=== PATIENT | male | born 1980 | race Caucasian/White ===

== ENCOUNTER 2022-07-29 11:31 | Inpatient (IN) | payer OTHER ==
[2022-07-29] VITALS (13 sets, daily range): BP systolic 100–121; BP diastolic 57–89
[~2022-07-29] VITALS: Ht 170.2 cm; Wt 97.1 kg
[2022-07-29] MEDS ORDERED: FENTANYL CITRATE/PF 50MCG/ML 2ML VIAL IV ONE ×3 (12:00→15:15)
[2022-07-29] MEDS ORDERED: CALCIUM CHLORIDE 1,000 MG in DEXT 5% WATER 90 ML IV ONE (13:00)
[2022-07-29 13:01] LABS: BASOPHILS % 1.1 % (0.0-2.0); EOSINOPHILS % 4.2 % (0.0-5.0); LYMPHOCYTES % 25.3 % (20.0-50.0); MEAN CORPUSCULAR HEMOGLOBIN 25.8 pg (28.0-32.0); MEAN CORPUSCULAR VOLUME 84.5 fL (80.0-94.0); MEAN PLATELET VOLUME 7.4 fl (7.4-10.4); MONOCYTES % 9.6 % (2.0-8.0); NEUTROPHILS % 59.8 % (40.0-76.0); PLATELET 328 x1000/uL (130-400); RED BLOOD CELL COUNT 2.43 mill/uL (4.7-6.1)
[2022-07-29 13:02] LABS: HEMOGLOBIN. 6.3 g/dL (14.0-18.0)
[2022-07-29 13:03] LABS: HEMATOCRIT. 20.6 % (42.0-52.0)
[2022-07-29 13:04] LABS: CHLORIDE 115 mEq/L (98-107)
[2022-07-29 13:07] LABS: INR 1.2; PROTHROMBIN TIME 12.6 sec (9.6-11.0)
[2022-07-29] MEDS ORDERED: ONDANSETRON HCL 4MG/2ML INJ IV NR (15:45)
[2022-07-29 17:06] LABS: HEMATOCRIT. 27.8 % (42.0-52.0); HEMOGLOBIN. 9.1 g/dL (14.0-18.0); MEAN CORPUSCULAR HEMOGLOBIN 27.7 pg (28.0-32.0); MEAN CORPUSCULAR VOLUME 84.3 fL (80.0-94.0); MEAN PLATELET VOLUME 7.2 fl (7.4-10.4); PLATELET 183 x1000/uL (130-400); RED BLOOD CELL COUNT 3.29 mill/uL (4.7-6.1); RED CELL DISTRIBUTION WIDTH 16.6 % (11.6-14.6)
[2022-07-29 17:08] LABS: INR 1.1; PROTHROMBIN TIME 12.2 sec (9.6-11.0)
[2022-07-29] MEDS ORDERED: ACETAMINOPHEN 325MG TABLET PO PRN (20:30)
[2022-07-29] MEDS ORDERED: POTASSIUM CHLORIDE 20MEQ TABLET SR PO NR (20:30)
[2022-07-29] MEDS ORDERED: SENNOSIDES 8.6MG TABLET PO PRN (20:30)
[2022-07-29] MEDS ORDERED: ZOLPIDEM TARTRATE 5MG TABLET PO PRN (20:30)
[2022-07-29] MEDS ORDERED: MAGNESIUM HYDROXIDE 400MG/5ML 30ML UDC PO PRN (20:30)
[2022-07-29] MEDS ORDERED: MAGNESIUM/ALUMINUM HYDROXIDE/SIMETHICONE 30ML UDC PO PRN (20:30)
[2022-07-29] MEDS ORDERED: NALOXONE HCL 0.4MG/ML VIAL IV PRN (20:45)
[2022-07-29] MEDS: HYDROMORPHONE HCL/PF 2MG/ML CPJ IV PRN ×2 (21:20→23:32)
[2022-07-29] MEDS: DIPHENHYDRAMINE 50MG/ML VIAL IV PRN (21:20)
[2022-07-29] MEDS: SODIUM CHLORIDE 0.9% 1,000 ML IV SCH (21:21)
[2022-07-29] MEDS: OXYCODONE HCL 20MG TABLET SR 12HR PO SCH (23:10)
[2022-07-29] MEDS: LORAZEPAM 0.5MG TABLET PO PRN (23:11)
[2022-07-30] VITALS (27 sets, daily range): BP systolic 92–136; BP diastolic 47–85
[2022-07-30 00:53] LABS: PLATELET ESTIMATE NORMAL
[2022-07-30] MEDS: HYDROMORPHONE HCL/PF 2MG/ML CPJ IV PRN ×10 (01:40→22:50)
[2022-07-30 06:39] LABS: BASOPHILS % 0.9 % (0.0-2.0); EOSINOPHILS % 2.1 % (0.0-5.0); HEMATOCRIT. 25.7 % (42.0-52.0); HEMOGLOBIN. 8.5 g/dL (14.0-18.0); LYMPHOCYTES % 7.2 % (20.0-50.0); MEAN CORPUSCULAR HEMOGLOBIN 27.7 pg (28.0-32.0); MEAN CORPUSCULAR VOLUME 83.8 fL (80.0-94.0); MEAN PLATELET VOLUME 7.7 fl (7.4-10.4); MONOCYTES % 9.5 % (2.0-8.0); NEUTROPHILS % 80.3 % (40.0-76.0); PLATELET 181 x1000/uL (130-400); RED BLOOD CELL COUNT 3.07 mill/uL (4.7-6.1); RED CELL DISTRIBUTION WIDTH 16.6 % (11.6-14.6)
[2022-07-30] MEDS: OXYCODONE HCL 20MG TABLET SR 12HR PO SCH ×2 (09:00→22:02)
[2022-07-30] MEDS: SODIUM CHLORIDE 0.9% 1,000 ML IV SCH ×2 (09:30→22:50)
[2022-07-30 10:25] LABS: CHLORIDE 113 mEq/L (98-107); PHOSPHORUS 3.4 mg/dL (2.5-4.9)
[2022-07-30] MEDS ORDERED: OXYCODONE HCL 20MG TABLET SR 12HR PO NR (10:30)
[2022-07-31] VITALS (14 sets, daily range): BP systolic 101–128; BP diastolic 29–64
[2022-07-31] MEDS: HYDROMORPHONE HCL/PF 2MG/ML CPJ IV PRN ×10 (01:01→22:41)
[2022-07-31] MEDS: LORAZEPAM 0.5MG TABLET PO PRN (05:42)
[2022-07-31 07:15] LABS: HEMATOCRIT. 22.5 % (42.0-52.0); HEMOGLOBIN. 7.5 g/dL (14.0-18.0); MEAN CORPUSCULAR HEMOGLOBIN 27.9 pg (28.0-32.0); MEAN CORPUSCULAR VOLUME 83.3 fL (80.0-94.0); MEAN PLATELET VOLUME 7.4 fl (7.4-10.4); PLATELET 148 x1000/uL (130-400); RED CELL DISTRIBUTION WIDTH 16.6 % (11.6-14.6)
[2022-07-31 07:42] LABS: CHLORIDE 111 mEq/L (98-107)
[2022-07-31] MEDS: OXYCODONE HCL 20MG TABLET SR 12HR PO SCH ×2 (09:47→20:39)
[2022-07-31] MEDS: SODIUM CHLORIDE 0.9% 1,000 ML IV SCH (13:02)
[2022-08-01] VITALS (25 sets, daily range): BP systolic 102–135; BP diastolic 44–79
[2022-08-01] MEDS: HYDROMORPHONE HCL/PF 2MG/ML CPJ IV PRN ×9 (00:51→22:50)
[2022-08-01] MEDS: ONDANSETRON HCL 4MG/2ML INJ IV PRN ×2 (02:21→10:33)
[2022-08-01] MEDS: SODIUM CHLORIDE 0.9% 1,000 ML IV SCH ×2 (02:22→15:10)
[2022-08-01 05:53] LABS: MEAN CORPUSCULAR HEMOGLOBIN 27.4 pg (28.0-32.0); MEAN CORPUSCULAR VOLUME 83.9 fL (80.0-94.0); PLATELET 138 x1000/uL (130-400); RED BLOOD CELL COUNT 2.48 mill/uL (4.7-6.1)
[2022-08-01 06:56] LABS: NUCLEATED RED BLOOD CELLS 1 /100 WBC
[2022-08-01 06:59] LABS: HEMOGLOBIN 6.8 g/dL (14.0-18.0)
[2022-08-01 07:00] LABS: HEMATOCRIT 20.8 % (42.0-52.0)
[2022-08-01 07:13] LABS: PLATELET ESTIMATE NORMAL
[2022-08-01] MEDS: OXYCODONE HCL 20MG TABLET SR 12HR PO SCH ×2 (10:33→21:28)
[2022-08-01] MEDS: ACETAMINOPHEN 325MG TABLET PO PRN (11:50)
[2022-08-01] MEDS: PANTOPRAZOLE 40MG DR TABLET PO SCH (21:28)
[2022-08-02] VITALS (18 sets, daily range): BP systolic 100–131; BP diastolic 47–75
[2022-08-02] MEDS: HYDROMORPHONE HCL/PF 2MG/ML CPJ IV PRN ×10 (00:45→22:23)
[2022-08-02] MEDS: SODIUM CHLORIDE 0.9% 1,000 ML IV SCH ×2 (04:43→17:50)
[2022-08-02 06:34] LABS: MEAN CORPUSCULAR VOLUME 83.3 fL (80.0-94.0); PLATELET 156 x1000/uL (130-400); RED BLOOD CELL COUNT 3.12 mill/uL (4.7-6.1); RED CELL DISTRIBUTION WIDTH 16.5 % (11.6-14.6)
[2022-08-02 07:17] LABS: HEMOGLOBIN 8.7 g/dL (14.0-18.0)
[2022-08-02] MEDS: PANTOPRAZOLE 40MG DR TABLET PO SCH ×2 (08:59→22:22)
[2022-08-02] MEDS: OXYCODONE HCL 20MG TABLET SR 12HR PO SCH ×2 (11:58→21:42)
[2022-08-02] MEDS: ACETAMINOPHEN 325MG TABLET PO PRN (14:58)
[2022-08-02 21:39] LABS: HEMOGLOBIN. 8.3 g/dL (14.0-18.0); MEAN CORPUSCULAR HEMOGLOBIN 27.7 pg (28.0-32.0); MEAN CORPUSCULAR VOLUME 83.8 fL (80.0-94.0); MEAN PLATELET VOLUME 7.6 fl (7.4-10.4); PLATELET 145 x1000/uL (130-400); RED BLOOD CELL COUNT 2.98 mill/uL (4.7-6.1); RED CELL DISTRIBUTION WIDTH 16.2 % (11.6-14.6)
[2022-08-02 23:54] LABS: PLATELET ESTIMATE NORMAL
[2022-08-03] VITALS (16 sets, daily range): BP systolic 96–125; BP diastolic 48–62
[2022-08-03] MEDS: HYDROMORPHONE HCL/PF 2MG/ML CPJ IV PRN ×11 (00:34→23:27)
[2022-08-03] MEDS: SODIUM CHLORIDE 0.9% 1,000 ML IV SCH ×2 (02:31→14:43)
[2022-08-03 05:42] LABS: HEMATOCRIT. 24.7 % (42.0-52.0); HEMOGLOBIN. 8.3 g/dL (14.0-18.0); MEAN CORPUSCULAR HEMOGLOBIN 28.1 pg (28.0-32.0); MEAN CORPUSCULAR VOLUME 83.7 fL (80.0-94.0); MEAN PLATELET VOLUME 7.8 fl (7.4-10.4); PLATELET 148 x1000/uL (130-400); RED BLOOD CELL COUNT 2.95 mill/uL (4.7-6.1); RED CELL DISTRIBUTION WIDTH 16.3 % (11.6-14.6)
[2022-08-03] MEDS: PANTOPRAZOLE 40MG DR TABLET PO SCH ×2 (06:55→20:54)
[2022-08-03] MEDS: OXYCODONE HCL 20MG TABLET SR 12HR PO SCH ×2 (09:22→21:58)
[2022-08-03 19:49] LABS: PLATELET ESTIMATE NORMAL
[2022-08-03] MEDS ORDERED: NALOXONE HCL 0.4MG/ML VIAL IV PRN (22:30)
[2022-08-04] VITALS (15 sets, daily range): BP systolic 98–130; BP diastolic 47–73
[2022-08-04] MEDS: HYDROMORPHONE HCL/PF 2MG/ML CPJ IV PRN ×9 (02:24→22:06)
[2022-08-04] MEDS: SODIUM CHLORIDE 0.9% 1,000 ML IV SCH ×2 (02:24→20:28)
[2022-08-04 06:40] LABS: MEAN CORPUSCULAR HEMOGLOBIN 27.8 pg (28.0-32.0); MEAN CORPUSCULAR VOLUME 83.6 fL (80.0-94.0); PLATELET 132 x1000/uL (130-400); RED BLOOD CELL COUNT 2.52 mill/uL (4.7-6.1); RED CELL DISTRIBUTION WIDTH 15.8 % (11.6-14.6)
[2022-08-04] MEDS: PANTOPRAZOLE 40MG DR TABLET PO SCH ×2 (08:49→20:28)
[2022-08-04] MEDS: OXYCODONE HCL 20MG TABLET SR 12HR PO SCH ×2 (10:22→20:28)
[2022-08-04] MEDS ORDERED: CEFAZOLIN 500 MG in DEXTROSE 5% WATER 50 ML IV SCH (15:45)
[2022-08-04] MEDS: CEFAZOLIN 1000MG PREMIX 50 ML IV SCH (20:26)
[2022-08-04 21:25] LABS: HEMOGLOBIN 7.5 g/dL (14.0-18.0)
[2022-08-05] VITALS (12 sets, daily range): BP systolic 104–125; BP diastolic 58–78
[2022-08-05] MEDS: HYDROMORPHONE HCL/PF 2MG/ML CPJ IV PRN ×11 (00:11→22:53)
[2022-08-05] MEDS: CEFAZOLIN 1000MG PREMIX 50 ML IV SCH ×3 (00:11→20:34)
[2022-08-05] MEDS: PANTOPRAZOLE 40MG DR TABLET PO SCH ×2 (06:15→20:39)
[2022-08-05 08:52] LABS: HEMATOCRIT. 22.4 % (42.0-52.0); HEMOGLOBIN. 7.5 g/dL (14.0-18.0); MEAN CORPUSCULAR HEMOGLOBIN 27.8 pg (28.0-32.0); PLATELET 149 x1000/uL (130-400); RED CELL DISTRIBUTION WIDTH 15.9 % (11.6-14.6)
[2022-08-05] MEDS: OXYCODONE HCL 20MG TABLET SR 12HR PO SCH ×2 (09:47→20:39)
[2022-08-05] MEDS: SODIUM CHLORIDE 0.9% 1,000 ML IV SCH (12:53)
[2022-08-05 19:52] LABS: PLATELET ESTIMATE NORMAL
[2022-08-06] VITALS (12 sets, daily range): BP systolic 103–133; BP diastolic 52–72
[2022-08-06] MEDS: HYDROMORPHONE HCL/PF 2MG/ML CPJ IV PRN ×9 (00:51→22:14)
[2022-08-06] MEDS: SODIUM CHLORIDE 0.9% 1,000 ML IV SCH ×2 (01:12→16:51)
[2022-08-06] MEDS: CEFAZOLIN 1000MG PREMIX 50 ML IV SCH ×3 (01:12→16:52)
[2022-08-06] MEDS: PANTOPRAZOLE 40MG DR TABLET PO SCH ×2 (06:14→22:14)
[2022-08-06] MEDS: OXYCODONE HCL 20MG TABLET SR 12HR PO SCH ×2 (10:04→21:00)
[2022-08-06 16:09] LABS: HEMATOCRIT 22.8 % (42.0-52.0); HEMOGLOBIN 7.6 g/dL (14.0-18.0); MEAN CORPUSCULAR HEMOGLOBIN 27.5 pg (28.0-32.0); MEAN CORPUSCULAR VOLUME 83.3 fL (80.0-94.0); PLATELET 162 x1000/uL (130-400); RED BLOOD CELL COUNT 2.74 mill/uL (4.7-6.1); RED CELL DISTRIBUTION WIDTH 16.1 % (11.6-14.6)
[2022-08-07] VITALS (13 sets, daily range): BP systolic 98–123; BP diastolic 49–71
[2022-08-07] MEDS: HYDROMORPHONE HCL/PF 2MG/ML CPJ IV PRN ×8 (00:48→22:04)
[2022-08-07] MEDS: DIPHENHYDRAMINE 50MG/ML VIAL IV PRN (00:48)
[2022-08-07] MEDS: CEFAZOLIN 1000MG PREMIX 50 ML IV SCH ×3 (01:00→17:12)
[2022-08-07] MEDS: SODIUM CHLORIDE 0.9% 1,000 ML IV SCH ×2 (04:30→17:13)
[2022-08-07] MEDS: PANTOPRAZOLE 40MG DR TABLET PO SCH ×2 (09:23→22:16)
[2022-08-07 09:28] LABS: HEMATOCRIT 24.9 % (42.0-52.0); HEMOGLOBIN 8.2 g/dL (14.0-18.0); MEAN CORPUSCULAR HEMOGLOBIN 27.8 pg (28.0-32.0); PLATELET 167 x1000/uL (130-400); RED BLOOD CELL COUNT 2.93 mill/uL (4.7-6.1); RED CELL DISTRIBUTION WIDTH 16.1 % (11.6-14.6)
[2022-08-07] MEDS: OXYCODONE HCL 20MG TABLET SR 12HR PO SCH ×2 (09:42→23:41)
[2022-08-07] MEDS ORDERED: IRON SUCROSE COMPLEX 100 MG/5 ML ML IV NR (12:30)
[2022-08-08] VITALS (14 sets, daily range): BP systolic 98–125; BP diastolic 50–71
[2022-08-08] MEDS: HYDROMORPHONE HCL/PF 2MG/ML CPJ IV PRN ×7 (00:12→14:11)
[2022-08-08] MEDS: CEFAZOLIN 1000MG PREMIX 50 ML IV SCH ×2 (01:36→08:37)
[2022-08-08] MEDS: SODIUM CHLORIDE 0.9% 1,000 ML IV SCH (05:10)
[2022-08-08 06:38] LABS: HEMATOCRIT 23.1 % (42.0-52.0); HEMOGLOBIN 7.7 g/dL (14.0-18.0); MEAN CORPUSCULAR VOLUME 83.5 fL (80.0-94.0); PLATELET 176 x1000/uL (130-400); RED BLOOD CELL COUNT 2.77 mill/uL (4.7-6.1); RED CELL DISTRIBUTION WIDTH 16.2 % (11.6-14.6)
[2022-08-08] MEDS ORDERED: IRON SUCROSE COMPLEX 100 MG/5 ML ML IV NR (08:00)
[2022-08-08] MEDS: PANTOPRAZOLE 40MG DR TABLET PO SCH (08:36)
[2022-08-08] MEDS: OXYCODONE HCL 20MG TABLET SR 12HR PO SCH (08:37)
== END 2022-08-08 16:04 | disposition home or self-care (01) | DRG 722 ==
LOC: ER 11:31 → 5EST 16:27
PROVIDERS: ADMIT Internal Medicine; ATTEND Internal Medicine
PROC: 30233R1 Transfusion of Nonautologous Platelets into Peripheral Vein, Percutaneous Approach (ICD-10-PCS; principal; 2022-07-29)
PROC: 30233N1 Transfusion of Nonautologous Red Blood Cells into Peripheral Vein, Percutaneous Approach (ICD-10-PCS; 2022-08-01)
PROC: 30233K1 Transfusion of Nonautologous Frozen Plasma into Peripheral Vein, Percutaneous Approach (ICD-10-PCS; 2022-08-02)
DX: C62.90 Malignant neoplasm of unspecified testis, unspecified whether descended or undescended (principal); E43 Unspecified severe protein-calorie malnutrition; R57.1 Hypovolemic shock; C79.9 Secondary malignant neoplasm of unspecified site; Q87.40 Marfan syndrome, unspecified; N50.1 Vascular disorders of male genital organs; E29.9 Testicular dysfunction, unspecified; D50.0 Iron deficiency anemia secondary to blood loss (chronic); Z20.822 Contact with and (suspected) exposure to COVID-19; G89.29 Other chronic pain; Z93.3 Colostomy status; Q78.4 Enchondromatosis; Z68.33 Body mass index [BMI] 33.0-33.9, adult; Q27.9 Congenital malformation of peripheral vascular system, unspecified
CPT/HCPCS: 36415; 80048; 80051; 80053; 83735; 84100; 85014; 85018; 85025; 85027; 85384; 86850; 86900; 86920; 86927; 87426; 99291; C1893; J0690; J1170; J1200; J2405; J3010; J3490; J7060; P9016; P9017; P9034